=== PATIENT | male | born 1930 | race Caucasian/White ===

== ENCOUNTER 2016-09-17 13:07 | Observation (INO) | payer MEDICARE ==
[~2016-09-17] VITALS: Ht 185.4 cm; Wt 91.6 kg
[~2016-09-17 13:07] MED LIST: METO-272 PO; POTA20TA16 PO; SIMV40TA5 PO; TORS20TA3 PO; WARF5TAB7 PO
--- NOTE | 2016-09-17 13:10 | ED.REPORT ---
HPI-Stroke / CVA Sep 17, 2016 ED Provider: Domenico Fish MD Pt is an 85 year old male with a history of A-fib, aortic valve regurgitation, HTN, and hyperlipidemia who presents to the ED complaining of slurred speech onset 09:00 today. He c/o associated facial droop and vision loss. He denies any other symptoms. His reports that his arms and legs may have not been working properly, but she is unable to remember. The pt reports that he may have fallen, but he couldn't remember if he did or not. Nursing Notes Stated Complaint: STROKE Chief Complaint: Stroke Nursing Notes Reviewed: Yes Allergies: Coded Allergies: No Known Allergies (Verified Allergy, Mild, 02/26/09) Scheduled Ascorbic Acid (Vitamin C) 250 Mg Tab.chew 250 MG PO DAILY (Reported) Calcium Carbonate (Calcium Carbonate) 600 Mg Tablet 600 MG PO DAILY (Reported) Metoprolol Succinate ER (Metoprolol Succinate ER) 50 Mg Tab.er.24h 50 MG PO BID (Reported) [place]-3/Dha/Epa/Fish Oil (Fish Oil 1,000 mg Softgel) 1 Each Capsule 1 EACH PO DAILY (Reported) Potassium Chloride (Potassium Chloride) 20 Meq Tab.er.prt 20 MEQ PO DAILYWM ( Reported) TAKE WITH FOOD Simvastatin (Simvastatin) 40 Mg Tablet 40 MG PO HS (Reported) Torsemide (Torsemide) 20 Mg Tablet 20 MG PO QAM (Reported) Warfarin Sodium (Warfarin Sodium) 5 Mg Tablet 5 MG PO FRIDAYS (Reported) WARFARIN 5 MG FRIDAYS AND 2.5 MG ALL OTHER DAYS Warfarin Sodium (Warfarin Sodium) 5 Mg Tablet 2.5 MG PO DAILY EXCEPT MONDAY ( Reported) WARFARIN 5 MG FRIDAYS AND 2.5 MG ALL OTHER DAYS General Time Seen by Provider: 01:09 Chief Complaint Slurred speech Hx Obtained From: Patient, Spouse Arrived By: Walk-in Time last known well Unknown Sudden in Onset?: Yes Symptom Duration: Duration unknown Progression Since Onset: Gradually improving Severity: Current: No pain currently Severity: Maximum: No pain Recent Healthcare: No recent doctor visit, No recent hospitalization Similar Sx Previous: No Risk Factors )( TPA Administration/Criteria Stroke Thrombolytic Therapy : TPA Considered: Yes TPA Administered Intravenously: No, not indicated (patient can't confirm that he did not awaken with the symptoms) NIH Stroke Scale Level of Consciousness: Alert and responsive (0) Ask Month & Age: Both questions right (0) Open/Close Eyes/Hand 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: Performs both tasks (0) Horizontal EO Movements: None (0) Visual [place]: No visual loss (0) Facial Palsy: Partial paral, lower (2) Right Arm Motor Drift (10s): No drift 10 sec (0) Left Arm Motor Drift (10s): No drift 10 sec (0) Right Leg Motor Drift (5s): No drift 5 sec (0) Left Leg Motor Drift (5s): No drift 5 sec (0) Limb Ataxia FNF/Heel-Jiménez: No ataxia (0) Sensation (Arms/Legs/Face): P-prick dull but felt (1) Language Aphasia: No aphasia, normal (0) Dysarthria: Slurring intelligible (1) Extinction/Inattention: No exctinct/inattent (0) NIHSS Score: 4 Time NIHSS Performed: 13:20 Date NIHSS Performed: Sep 17, 2016 Past Medical History Past Medical History DVT right leg - 2004 Pulmonary embolism Kidney stone Reports: Hyperlipidemia, Hypertension, Denies: Diabetes mellitus Past Surgical History Aortic valve regurgitation Ankle Smoking History Former Smoker (1956) Social History Alcohol Use: Denies alcohol use Drug Use: Denies drug use Other Social History: Good social support Ambulatory Status Independent Review of Systems Respiratory: Denies: Non-productive cough, Shortness of breath Neurologic: Reports: Focal weakness, Slurred speech, Vision change Complete sys rev & neg: except as marked. Physical Exam Initial Vital Signs Vital Signs (First) Date Time Temp Pulse Resp B/P Pulse Ox O2 Delivery O2 Flow Rate FiO2 09/17/16 13:39 55 20 152/54 98 Room Air Initial VS: Reviewed Abdomen / GI: Soft, Non-tender Extremities: Vascular intact, Neuro intact Skin: Warm, Dry, No cyanosis Psychiatric: Mood/affect normal, Behavior normal General/Constitutional: Awake, Alert, Cooperative Head / Eyes: Atraumatic, Normocephalic Neck: Atraumatic, Full range of motion Respiratory / Chest: Atraumatic, Breath sounds NL, Breath sounds = bilat Cardiovascular: Heart rate NL, Regular rhythm, Heart sounds NL Neurologic: Oriented X3, No motor deficits, No sensory deficits Speech: Positive: Slurred Right upper extremity is dull to sensation and sharper on the right side. The left leg is dull. The right face is affected with dramatic flattening of the right face. Interpretation & Diagnostics Lab Results Interpretation Result Diagram: 09/17/16 1325 09/17/16 1325 Test 09/17/16 13:25 White Blood Count 6.3th/mm3 (3.8-10.1) Red Blood Count 4.48mil/mm3 (4.40-5.80) Hemoglobin 14.7g/dL (13.8-17.2) Hematocrit 44.1% (41.0-50.0) Mean Corpuscular Volume 98.4fL (81-100) Mean Corpuscular Hemoglobin 32.8pg (27.0-35.0) Mean Corpuscular Hemoglobin Concent 33.3% (32.0-37.0) Red Cell Distribution Width 12.8% (12.3-15.4) Platelet Count 163bil/L (150-400) Neutrophils (%) (Auto) 68.4% (40-74) Lymphocytes (%) (Auto) 20.3% (14-46) Monocytes (%) (Auto) 9.9% (4-12) Eosinophils (%) (Auto) 0.8% (0-5) Basophils (%) (Auto) 0.3% (0-3) Prothrombin Time 23.7sec (8.1-12.5) Prothromb Time International Ratio 2.18ratio Activated Partial Thromboplast Time 35.2sec (22.8-33.0) Sodium Level 139mEq/L (134-144) Potassium Level 4.2mEq/L (3.5-5.2) Chloride Level 101mEq/L (97-108) Carbon Dioxide Level 25mmol/L (18-29) Blood Urea Nitrogen 17mg/dL (8-27) Creatinine 0.86mg/dL (0.76-1.27) Estimat Glomerular Filtration Rate 90mL/min (>59) Glucose Level 101mg/dL (60-99) Calcium Level 9.1mg/dL (8.5-10.1) Total Bilirubin 2.4mg/dL (0.0-1.2) Aspartate Amino Transf (AST/SGOT) 25U/L (0-50) Alanine Aminotransferase (ALT/SGPT) 15U/L (0-44) Alkaline Phosphatase 47U/L (25-160) Troponin T < 0.010ug/L (0.0-0.011) Total Protein 7.2g/dL (6.4-8.4) Albumin 3.8g/dL (3.4-5.0) ECG Interpretation ECG Interpretation: Sinus rhythm with a rate of 51. Prolonged ME interval. Non-specific IVCD. Time: 13:39 Interpreted by: ED physician Re-Eval/Medical Decision Med Decision/Clinical Course CT angiography of the head and neck showed no large vascular lesion. Source of Hx: Old records Re-Evaluation/Progress : Time of Eval: 13:42 Re-Evaluation/Progress Note: Pt rechecked. Informed pt of plan for admission. Pt understands and agrees with plan for admission. All questions were answered. Consultation : Referral / Consult Name: Yessy English MD Consulted With: Hospitalist Call Returned at: 01:53 Senior Facilities Manager: Will see patient, Agrees with eval, Agrees with plan, Accepts admit Counseled Regarding: Diagnosis, Lab results, Need for admission Patient Discharge & Departure Impression: Primary Impression: Cerebrovascular accident CVA mechanism: unspecified Qualified Code: I63.9 - Cerebral infarction, unspecified Disposition: ADMITTED TO HOSPITAL Discharge Condition All VS Reviewed: Yes Condition: Stable Referrals: Tono Hernández MD (PCP) Ifeanyiibjuan Attestation Portions of this note were transcribed by Birgit Leal. IDr. Fish personally performed the history, physical exam and medical decision-making; I reviewed and confirmed the accuracy of the information in the transcribed note. Signed by: Andrew Simms, 09/17/16 and 13:50. copies to: Tono Hernández MD, Kirk H MD Sep 17, 2016 13:10 Birgit Heller Sep 17, 2016 13:26
--- NOTE | 2016-09-17 13:28 | DRSVH ---
PROCEDURE: CT BRAIN (TPA) ([id number]) INDICATIONS: Stroke TECHNIQUE: Noncontrast 4.5 mm thick angled axial sections acquired from the foramen magnum to the vertex, with c oronal reformats. COMPARISON: None. FINDINGS: Image quality: Excellent. CSF spaces: Basal cisterns are patent. No extra-axial fluid collections. The ventricles are symmet may in size and shape. Brain: No intracranial bleeds or masses. There is cerebral volume loss for age, with resultant vent ricular and sulcal prominence. There are extensive periventricular and deep white matter chronic sma ll vessel ischemic changes. There is intracranial internal carotid artery atherosclerosis. Skull and face: Calvarium and visualized facial bones appear intact, without suspicious lesions. Sinuses: Visualized sinuses and mastoids are clear. IMPRESSION: 1. No acute intracranial findings. 2. Extensive findings likely associated with microvascular ischemic changes. These findings were discussed with Dr. Fish at 1:26 PM on 09/17/16. This study fulfills neurological imaging criteria for inclusion or exclusion of acute stroke therapie s based on available published neurological guidelines. Dictated by: Ciara Magallanes M.D. on 09/17/2016 at 13:23 Approved by: Ciara Magallanes M.D. on 09/17/2016 at 13:26
[2016-09-17 13:39] VITALS: BP 152/54; PULSE 55; RESP 20; O2SAT 98
[2016-09-17 13:42] LABS: BASOPHILS % (AUTO) 0.3 % (0-3); EOSINOPHILS % (AUTO) 0.8 % (0-5); MONOCYTES % (AUTO) 9.9 % (4-12); Mean Corpuscular Hemoglobin 32.8 pg (27.0-35.0); Mean Corpuscular Volume 98.4 fL (81-100); NEUTROPHILS % (AUTO) 68.4 % (40-74); Platelet Count 163 bil/L (150-400)
[2016-09-17] MEDS ORDERED: WARF5TAB7 PO (13:58)
--- NOTE | 2016-09-17 13:58 | NUR ---
Evaluation completed. Please go to "Notes" then click on "Assessments and Notes" (bottom left corner of screen). Then select appropriate discipline tab on top of screen.
[2016-09-17 14:00] LABS: INR 2.18 ratio
[2016-09-17] MEDS ORDERED: ASCO250T7 PO (14:00)
[2016-09-17] MEDS ORDERED: OMEG-38 PO (14:00)
[2016-09-17] MEDS ORDERED: CALC600T20 PO (14:00)
[2016-09-17 14:10] LABS: TROPONIN T < 0.010 ug/L (0.0-0.011)
[2016-09-17 14:22] VITALS: BP 139/47; PULSE 62; RESP 20; O2SAT 97
[2016-09-17 15:28] VITALS: BP 157/60; PULSE 59; RESP 20; O2SAT 98
--- NOTE | 2016-09-17 15:33 | DRSVH ---
PROCEDURE: CT ANGIO HEAD AND NECK (P) INDICATIONS: cva TECHNIQUE: Pre-contrast 4.5 mm thick sections acquired from the foramen magnum to the vertex. After the adminis tration of intravenous contrast, 1 mm thick sections acquired from the aortic arch through the [place] of [place]. Post-contrast 4.5 mm thick sections then re-acquired from the foramen magnum to the vert ex. 3-dimensional jlnvlej-fwtymzpdc-iocgxzomar (MIP) and/or volume rendering reformats were acquired of the central intracranial vasculature and neck separately. For radiation dose reduction, the foll owing was used: automated exposure control, adjustment of mA and/or kV according to patient size. COMPARISON: None. FINDINGS: Image quality: Excellent. BRAIN: CSF spaces: Ventricles are normal in size and shape. Basal cisterns are patent. No extra-axial flu id collections. Brain: No midline shift. No intracranial bleeds or masses. There are extensive deep and periventri cular white matter changes likely associated with microvascular ischemic change. There is an old infa rct within the right external capsule of the basal ganglia. Cage-white matter interface appears intac t. Skull and face: Calvarium and facial bones appear intact, without suspicious lesions. Orbits appear normal. Sinuses: Sinuses and mastoids are clear. HEAD CT ANGIOGRAPHY: Anterior circulation: Intracranial internal carotid arteries are normal in overall size and flow. A moderate grade stenosis is present within the left and a high-grade stenosis is present within the ri ght cavernous portions of the internal carotid artery secondary to atheromatous calcification. The f low within the paired anterior cerebral arteries is normal and symmetric. The flow within the middle cerebral arteries is normal and symmetric. The anterior communicating artery is seen. No aneurysms are seen. Posterior circulation: Visualized portions of the vertebral arteries demonstrate normal caliber, and join to form a normal appearing basilar artery. Flow within the posterior cerebral arteries is norm al and symmetric. No aneurysms are seen. NECK CT ANGIOGRAPHY: Carotid system: The great vessels demonstrate a conventional anatomy as they arise from the aortic a rch. The origins of the common carotid arteries appear patent. The common carotid arteries demonstr ate normal caliber and courses. The bifurcation regions are both widely patent. A moderate grade st enosis is present within the proximal right internal carotid artery secondary to atheromatous calcifi cation. The internal carotid arteries demonstrate normal calibers and courses. Posterior circulation: Is a questionable stenosis at the origin of the left vertebral artery. The ambika gin of right vertebral artery is patent. The more superior extracranial portions of both vertebral a rteries also demonstrate normal courses and calibers. They join to form a normal appearing basilar a rtery. Soft tissues: Visualized neck soft tissues demonstrate no suspicious abnormalities. Bones: No suspicious bony lesions. Visualized cervical spine appears normally aligned. IMPRESSION: 1. No acute intracranial findings. 2. Extensive findings likely associated with chronic microvascular ischemic changes. 3. High-grade stenosis of the right and a moderate grade stenosis of the left cavernous portions of t he internal carotid artery secondary to atheromatous calcification. 4. Moderate grade stenosis of the proximal cervical portion of the right internal carotid artery seco ndary to atheromatous calcifications. 5. No occlusion or aneurysmal dilatation. 6. Questionable stenosis at the origin of the left vertebral artery. Dictated by: Ciara Magallanes M.D. on 09/17/2016 at 15:22 Approved by: Ciara Magallanes M.D. on 09/17/2016 at 15:31
[2016-09-17 15:46] LABS: APPEARANCE,URINE CLEAR (CLEAR,HAZY); COLOR,URINE YELLOW (YELLOW); OCCULT BLOOD,URINE NEGATIVE (NEGATIVE); UROBILINOGEN,URINE NORMAL (NORMAL)
[2016-09-17] MEDS ORDERED: Ondansetron 2 mg/mL 2 mL Inj IVPUSH PRN ×2 (16:00→16:05)
[2016-09-17] MEDS ORDERED: Alum-Mag Hydrox-Simeth 30 mL Suspension PO PRN ×2 (16:00→16:05)
[2016-09-17] MEDS ORDERED: Polyethylene Glycol (PEG) 17 Gm Powder PO PRN (16:05)
--- NOTE | 2016-09-17 16:26 | PCM.HPMED ---
Subjective Date of Service Sep 17, 2016 Primary Provider: Admitting Physician: Yessy English MD Primary Care Physician: Tono Hernández MD Attending Physician: Yessy English MD Admit Status: From the Emergency Department Chief Complaint: Slurred speech History of Present Illness: Yesterday he was his usual self. Today around 9 AM he awoke without paper and was reading it. He thought he was doing fine until he tried to talk to his and then noted that his speech was slurred. During his stay in the emergency department he has noted that this is much improved. He does also have a right facial droop which she thinks is improving as well. Denies any visual changes. No new weakness or numbness of any extremities. He says he does have some chronic foot drop. He did have atrial fibrillation last fall but has not noted palpitations and no chest discomfort or shortness of breath. Review of Systems: Hard of hearing and currently not using his hearing aids as the batteries are . Otherwise review of systems is negative except as above Allergies Coded Allergies: No Known Allergies (Verified Allergy, Mild, 02/26/09) Home Medications Potassium chloride 20 mEq daily Warfarin 5 mg on Fridays, 2.5 mg on other days Metoprolol, apparently XL, 50 mg twice a day Torsemide 20 mg daily Simvastatin 40 mg each evening PMH Atrial fibrillation documented last fall, currently in sinus rhythm DVT and pulmonary embolus in 2004, on chronic anticoagulation with warfarin Kidney stones in the Hyper lipidemia Left ankle fracture in 2008 which was pinned and he says he later had an infection area Surgical History Left ankle fracture in 2008 which was pinned Family History Father had diabetes and patient says he from "atherosclerosis" He is not sure what his mother from Social History Hx Alcohol Use: Yes Alcoholic Drinks Per Day: 3-4 drinks every day Hx Substance Use: No Smoking Status: Former Smoker (quit in 1956) Additional Information He has been for 52 years and his has dementia. Has a son living in [place] but he left for [facility] this morning. He has been trying to reach his fuqyegjy-ar-hld to come care for his but she has not yet returned his call. He also has 2 stepdaughters, one living in [place] who is a returned case inspector and the other living in [place]. Exam Vital Signs Vital Sign - Last Date Time Temp Pulse Resp B/P Pulse Ox O2 Delivery O2 Flow Rate FiO2 09/17/16 15:28 59 20 157/60 98 Room Air 09/17/16 14:22 36.7 Exam General: Alert and oriented, no acute distress HEENT: Right facial droop with decreased light touch sensation of the right lower face Neuro: Cranial nerves otherwise appear intact Handgrips are strong and equal, no pronator drift Right dorsiflexion is weaker than the left but plantar flexion strong bilaterally and able to raise each leg off the bed against resistance Neck: No JVD, carotids 2+ Heart: Regular with occasional premature beat Lungs: Clear Abdomen: Soft, non-tender, bowel tones present, no apparent masses or hepatosplenomegaly Extremities: No pedal edema, right pedal pulse 2+ not able to easily locate the left one, trace pedal edema, chronic stasis changes of the skin Lab and Diagnostics Result Diagram: 09/17/16 1325 09/17/16 1325 X-Rays, CTs and MRIs PROCEDURE: CT BRAIN (TPA) ([id number]) INDICATIONS: Stroke TECHNIQUE: Noncontrast 4.5 mm thick angled axial sections acquired from the foramen magnum to the vertex, with coronal reformats. COMPARISON: None. FINDINGS: Image quality: Excellent. CSF spaces: Basal cisterns are patent. No extra-axial fluid collections. The ventricles are symmetric in size and shape. Brain: No intracranial bleeds or masses. There is cerebral volume loss for age , with resultant ventricular and sulcal prominence. There are extensive periventricular and deep white matter chronic small vessel ischemic changes. There is intracranial internal carotid artery atherosclerosis. Skull and face: Calvarium and visualized facial bones appear intact, without suspicious lesions. Sinuses: Visualized sinuses and mastoids are clear. IMPRESSION: 1. No acute intracranial findings. 2. Extensive findings likely associated with microvascular ischemic changes. These findings were discussed with Dr. Fish at 1:26 PM on 09/17/16. This study fulfills neurological imaging criteria for inclusion or exclusion of acute stroke therapies based on available published neurological guidelines. Dictated by: Ciara Magallanes M.D. on 09/17/2016 at 13:23 Approved by: Ciara Magallanes M.D. on 09/17/2016 at 13:2 PROCEDURE: CT ANGIO HEAD AND NECK (P) INDICATIONS: cva TECHNIQUE: Pre-contrast 4.5 mm thick sections acquired from the foramen magnum to the vertex. After the administration of intravenous contrast, 1 mm thick sections acquired from the aortic arch through the [place] of [place]. Post-contrast 4.5 mm thick sections then re-acquired from the foramen magnum to the vertex. 3- dimensional kabdhht-vgtolgeew-vwinsbxgey (MIP) and/or volume rendering reformats were acquired of the central intracranial vasculature and neck separately. For radiation dose reduction, the following was used: automated exposure control, adjustment of mA and/or kV according to patient size. COMPARISON: None. FINDINGS: Image quality: Excellent. BRAIN: CSF spaces: Ventricles are normal in size and shape. Basal cisterns are patent. No extra-axial fluid collections. Brain: No midline shift. No intracranial bleeds or masses. There are extensive deep and periventricular white matter changes likely associated with microvascular ischemic change. 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 Cage-white matter interface appears intact. Skull and face: Calvarium and facial bones appear intact, without suspicious lesions. Orbits appear normal. Sinuses: Sinuses and mastoids are clear. HEAD CT ANGIOGRAPHY: Anterior circulation: Intracranial internal carotid arteries are normal in overall size and flow. A moderate grade stenosis is present within the left and a high-grade stenosis is present within the right cavernous portions of the internal carotid artery secondary to atheromatous calcification. The flow within the paired anterior cerebral arteries is normal and symmetric. The flow within the middle cerebral arteries is normal and symmetric. The anterior communicating artery is seen. No aneurysms are seen. Posterior circulation: Visualized portions of the vertebral arteries demonstrate normal caliber, and join to form a normal appearing basilar artery. Flow within the posterior cerebral arteries is normal and symmetric. No aneurysms are seen. NECK CT ANGIOGRAPHY: Carotid system: The great vessels demonstrate a conventional anatomy as they arise from the aortic arch. The origins of the common carotid arteries appear patent. The common carotid arteries demonstrate normal caliber and courses. The bifurcation regions are both widely patent. A moderate grade stenosis is present within the proximal right internal carotid artery secondary to atheromatous calcification. The internal carotid arteries demonstrate normal calibers and courses. Posterior circulation: Is a questionable stenosis at the origin of the left vertebral artery. The origin of right vertebral artery is patent. The more superior extracranial portions of both vertebral arteries also demonstrate normal courses and calibers. They join to form a normal appearing basilar artery. Soft tissues: Visualized neck soft tissues demonstrate no suspicious abnormalities. Bones: No suspicious bony lesions. Visualized cervical spine appears normally aligned. IMPRESSION: 1. No acute intracranial findings. 2. Extensive findings likely associated with chronic microvascular ischemic changes. 3. 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 4. Moderate grade stenosis of the proximal cervical portion of the right internal carotid artery secondary to atheromatous calcifications. 5. No occlusion or aneurysmal dilatation. 6. Questionable stenosis at the origin of the left vertebral artery. Dictated by: Ciara Magallanes M.D. on 09/17/2016 at 15:22 Approved by: Ciara Magallanes M.D. on 09/17/2016 at 15:31 Assessment & Plan 85-year-old man on chronic warfarin therapy for history of DVT/PE and more recently atrial fibrillation, although currently in sinus rhythm. He developed slurred speech and right facial droop this morning which were showing improvement by the time of admission. Slurred speech and right facial droop, acute, present at the time of admission, presumed due to stroke/TIA - Is therapeutic on warfarin, will continue - Continue statin - CT angiogram of the neck does show some carotid disease but worse on the right which does not match his symptoms - Obtain speech therapy and physical therapy evaluations - No neurologist available on the weekend for consult History of atrial fibrillation last fall, currently in sinus rhythm - Is therapeutic on warfarin, will continue - Continue same dose of metoprolol 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, will continue Hyperlipidemia - Continue statin Elevated total bilirubin, unclear if this is acute or chronic - Other liver function tests, including alkaline phosphatase, are normal - Repeat labs tomorrow Yessy English MD Sep 17, 2016 16:26
[2016-09-17 16:39] VITALS: BP 171/62; PULSE 59; RESP 18; O2SAT 98
--- NOTE | 2016-09-17 16:41 | PCM.CONPHA ---
Subjective Date of Service: Sep 17, 2016 Warfarin dosing Reason for Pharmacy Consult: Anticoagulation Management Assessment/Plan Assessment/Plan Date INR 2.18 INR change Warf Dose 2.5MG A/ Patient is on warfarin for a hx of DVT/PE. Patient takes 2.5mg daily except 5mg on monday. INR is 2.18, which is therapeutic. P/ Continue with home dosing today and pharmacy will monitor daily. Thank you for consulting pharmacy in the care of this patient. Power Velasquez Sep 17, 2016 16:41
[2016-09-17 16:45] VITALS: PULSE 58
--- NOTE | 2016-09-17 18:41 | NUR ---
ADMIT NOTE Admitted an 85/M into room 3014 following report from FRANCOIS Low RN. Pt A&Ox4, denies any pain/discomfort. Able to transfer from stretcher to bed with SBA. IV flushing easily. Neuros + for slight R facial droop. Pt has equal rating specialist. Pt on RA, denies any SOB. TELE in place. Pt introduced to staff, bed/call light controls. Pt main concern is at bedside for whom he is the sole caregiver for as she has dementia. Multiple calls have been made in ED and on unit to dtr in law, Jaki ([phone]) as his son, Jim is out of town on a business trip. Bed in lowest, locked position and call light in reach.
[2016-09-17 20:41] VITALS: BP 158/73; PULSE 64; RESP 18; O2SAT 99
[2016-09-17] MEDS: MeTOProlol XL 50 mg ER24 Tablet PO SCH (20:57)
--- NOTE | 2016-09-17 20:58 | NUR ---
HENNA explained and signed, Copy of AGUILLON given to pt.
[2016-09-18 00:42] VITALS: BP 154/69; PULSE 50; RESP 18; O2SAT 95
[2016-09-18 04:40] VITALS: BP 150/62; PULSE 56; RESP 19; O2SAT 94
[2016-09-18 05:46] VITALS: PULSE 56
--- NOTE | 2016-09-18 06:29 | NUR ---
Noc/NVS pt is alert and oriented x4. Noted right sided facial droop. Pt having difficulty pronouncing words. Observed no tongue deviation. Has been pleasant and cooperative with care. Noted bilateral equal equipment engineer. Lower extremities appropriate for age. Denies chest pain, sob, n/v or abd discomfort. HS meds administered as scheduled. VSS and has been afebrile overnight.
[2016-09-18 07:11] LABS: INR 1.95 ratio
[2016-09-18 07:15] LABS: Bilirubin, Direct 0.4 mg/dL (0.0-0.3)
[2016-09-18] MEDS ORDERED: Potassium Chloride 20 mEq SR Tablet PO SCH (08:00)
[2016-09-18] MEDS ORDERED: Ascorbic Acid 500 mg Tablet PO SCH (08:30)
[2016-09-18] MEDS ORDERED: Calcium Carbonate (Oyster Shell) 500 mg Tablet PO SCH (08:30)
[2016-09-18] MEDS ORDERED: Omega-3-Acid Ethyl Esters 1 Gm Capsule PO SCH (08:30)
[2016-09-18 08:32] VITALS: PULSE 69
[2016-09-18] MEDS: MeTOProlol XL 50 mg ER24 Tablet PO SCH (08:40)
--- NOTE | 2016-09-18 10:10 | NUR ---
Evaluation completed. Please go to "Notes" then click on "Assessments and Notes" (bottom left corner of screen). Then select appropriate discipline tab on top of screen.
--- NOTE | 2016-09-18 10:18 | PCM.PHAPRO ---
Progress Date of Service: Sep 18, 2016 Slurred speech WARFARIN MANAGEMENT A\ 85yo M Admitted with possible CVA and history of PE/DVT Goal INR 2-3 Current INR=1.95 Home Warfarin 5mg Fridays, 2.5mg all other days INR has dripped subtherapeutic today will increase today' s dose. P\ Warfarin 5mg PO x1 tonight and continue to monitor daily INRs [place] [facility] Sep 18, 2016 10:18
[2016-09-18 10:43] VITALS: BP 129/57; PULSE 51; RESP 18; O2SAT 96
--- NOTE | 2016-09-18 13:01 | PCM.DIMED ---
Discharge Instructions Date of Service Sep 18, 2016 Dates of Hospitalization Sep 17, 2016 at 14:19 Diet Discharge Diet: Heart Healthy Activity Discharge Activity: Other (as per physical therapists recommendations) Patient Instructions Follow-up with PCP in: Other (this week) Yessy English MD Sep 18, 2016 13:01
--- NOTE | 2016-09-18 13:11 | PCM.DC.MED ---
Discharge Summary Date of Service Sep 18, 2016 Dates of Hospitalization Date of Hospital Admission Sep 17, 2016 at 14:19 Date of Discharge: Sep 18, 2016 Providers: Admitting Physician: Yessy English MD Primary Care Physician: Tono Hernández MD Attending Physician: Yessy English MD Diagnosis at Time of Discharge Diagnosis at Time of Discharge Stroke Procedures XRay, CTs & MRIs PROCEDURE: CT BRAIN (TPA) ([id number]) INDICATIONS: Stroke TECHNIQUE: Noncontrast 4.5 mm thick angled axial sections acquired from the foramen magnum to the vertex, with coronal reformats. COMPARISON: None. FINDINGS: Image quality: Excellent. CSF spaces: Basal cisterns are patent. No extra-axial fluid collections. The ventricles are symmetric in size and shape. Brain: No intracranial bleeds or masses. There is cerebral volume loss for age , with resultant ventricular and sulcal prominence. There are extensive periventricular and deep white matter chronic small vessel ischemic changes. There is intracranial internal carotid artery atherosclerosis. Skull and face: Calvarium and visualized facial bones appear intact, without suspicious lesions. Sinuses: Visualized sinuses and mastoids are clear. IMPRESSION: 1. No acute intracranial findings. 2. Extensive findings likely associated with microvascular ischemic changes. These findings were discussed with Dr. Fish at 1:26 PM on 09/17/16. This study fulfills neurological imaging criteria for inclusion or exclusion of acute stroke therapies based on available published neurological guidelines. Dictated by: Ciara Magallanes M.D. on 09/17/2016 at 13:23 Approved by: Ciara Magallanes M.D. on 09/17/2016 at 13:2 PROCEDURE: CT ANGIO HEAD AND NECK (P) INDICATIONS: cva TECHNIQUE: Pre-contrast 4.5 mm thick sections acquired from the foramen magnum to the vertex. After the administration of intravenous contrast, 1 mm thick sections acquired from the aortic arch through the [place]. Post-contrast 4.5 mm thick sections then re-acquired from the foramen magnum to the vertex. 3- dimensional gjvgflz-tcwtyhdrf-ifndoliafx (MIP) and/or volume rendering reformats were acquired of the central intracranial vasculature and neck separately. For radiation dose reduction, the following was used: automated exposure control, adjustment of mA and/or kV according to patient size. COMPARISON: None. FINDINGS: Image quality: Excellent. BRAIN: CSF spaces: Ventricles are normal in size and shape. Basal cisterns are patent. No extra-axial fluid collections. Brain: No midline shift. No intracranial bleeds or masses. There are extensive deep and periventricular white matter changes likely associated with microvascular ischemic change. 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 Cage-white matter interface appears intact. Skull and face: Calvarium and facial bones appear intact, without suspicious lesions. Orbits appear normal. Sinuses: Sinuses and mastoids are clear. HEAD CT ANGIOGRAPHY: Anterior circulation: Intracranial internal carotid arteries are normal in overall size and flow. A moderate grade stenosis is present within the left and a high-grade stenosis is present within the right cavernous portions of the internal carotid artery secondary to atheromatous calcification. The flow within the paired anterior cerebral arteries is normal and symmetric. The flow within the middle cerebral arteries is normal and symmetric. The anterior communicating artery is seen. No aneurysms are seen. Posterior circulation: Visualized portions of the vertebral arteries demonstrate normal caliber, and join to form a normal appearing basilar artery. Flow within the posterior cerebral arteries is normal and symmetric. No aneurysms are seen. NECK CT ANGIOGRAPHY: Carotid system: The great vessels demonstrate a conventional anatomy as they arise from the aortic arch. The origins of the common carotid arteries appear patent. The common carotid arteries demonstrate normal caliber and courses. The bifurcation regions are both widely patent. A moderate grade stenosis is present within the proximal right internal carotid artery secondary to atheromatous calcification. The internal carotid arteries demonstrate normal calibers and courses. Posterior circulation: Is a questionable stenosis at the origin of the left vertebral artery. The origin of right vertebral artery is patent. The more superior extracranial portions of both vertebral arteries also demonstrate normal courses and calibers. They join to form a normal appearing basilar artery. Soft tissues: Visualized neck soft tissues demonstrate no suspicious abnormalities. Bones: No suspicious bony lesions. Visualized cervical spine appears normally aligned. IMPRESSION: 1. No acute intracranial findings. 2. Extensive findings likely associated with chronic microvascular ischemic changes. 3. 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 4. Moderate grade stenosis of the proximal cervical portion of the right internal carotid artery secondary to atheromatous calcifications. 5. No occlusion or aneurysmal dilatation. 6. Questionable stenosis at the origin of the left vertebral artery. Dictated by: Ciara Magallanes M.D. on 09/17/2016 at 15:22 Approved by: Ciara Magallanes M.D. on 09/17/2016 at 15:31 Brief History Yesterday he was his usual self. Today around 9 AM he awoke without paper and was reading it. He thought he was doing fine until he tried to talk to his and then noted that his speech was slurred. During his stay in the emergency department he has noted that this is much improved. He does also have a right facial droop which she thinks is improving as well. Denies any visual changes. No new weakness or numbness of any extremities. He says he does have some chronic foot drop. He did have atrial fibrillation last fall but has not noted palpitations and no chest discomfort or shortness of breath. Hospital Course 85-year-old man on chronic warfarin therapy for history of DVT/PE and more recently atrial fibrillation, although currently in sinus rhythm. He developed slurred speech and right facial droop the morning of admission (possibly present upon awakening so no thrombolytics) which were showing improvement by the time of admission. Slurred speech and right facial droop, acute, present at the time of admission, presumed due to stroke, improving - Is therapeutic on warfarin, will continue - Continue statin - Brain CT with no acute abnl (did show extensive periventricular and deep white matter chronic small vessel ischemic changes) - CT angiogram of the neck does show some carotid disease but worse on the right which does not match his symptoms - speech therapy and physical therapy evaluations done and they recommend home health PT and ST - No neurologist available on the weekend for consult - should follow up this week with his PCP to see if neurologist consultation or any change in therapy is warranted History of atrial fibrillation last fall, currently in sinus rhythm - Is therapeutic on warfarin, will continue - Continue same dose of metoprolol 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, will continue Hyperlipidemia - Continue statin Elevated total bilirubin (2.4), unclear if this is acute or chronic, consider Gilbert syndrome - Other liver function tests, including alkaline phosphatase, are normal - Repeat labs this am show total bili 2.4 and direct bili 0.4 Exam Vital Signs (Last) Date Time Temp Pulse Resp B/P Pulse Ox O2 Delivery O2 Flow Rate FiO2 09/18/16 10:43 36.7 51 18 129/57 96 Room Air Exam General: Alert and oriented, no acute distress, mild occl slurred speech Slight right facial droop, improved since yesterday Heart: Regular Lungs: Clear Abdomen: Soft, non-tender Extremities: No pedal edema, hand 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 operator strong and equal Test 09/17/16 13:25 09/17/16 15:00 09/18/16 06:15 White Blood Count 6.3th/mm3 (3.8-10.1) Red Blood Count 4.48mil/mm3 (4.40-5.80) Hemoglobin 14.7g/dL (13.8-17.2) Hematocrit 44.1% (41.0-50.0) Mean Corpuscular Volume 98.4fL (81-100) Mean Corpuscular Hemoglobin 32.8pg (27.0-35.0) Mean Corpuscular Hemoglobin Concent 33.3% (32.0-37.0) Red Cell Distribution Width 12.8% (12.3-15.4) Platelet Count 163bil/L (150-400) Neutrophils (%) (Auto) 68.4% (40-74) Lymphocytes (%) (Auto) 20.3% (14-46) Monocytes (%) (Auto) 9.9% (4-12) Eosinophils (%) (Auto) 0.8% (0-5) Basophils (%) (Auto) 0.3% (0-3) Activated Partial Thromboplast Time 35.2sec (22.8-33.0) Troponin T < 0.010ug/L (0.0-0.011) Urine Color Yellow (YELLOW) Urine Appearance Clear (CLEAR,HAZY) Urine pH 5.0 (5.0-8.0) Urine Specific [place] 1.015 (1.003-1.035) Urine Protein Negativemg/dL (NEG,TRACE) Urine Glucose (UA) Negativemg/dL (NEGATIVE) Urine Ketones Negativemg/dL (NEGATIVE) Urine Occult Blood Negative (NEGATIVE) Urine Nitrite Negative (NEGATIVE) Urine Bilirubin Negative (NEGATIVE) Urine Urobilinogen Normalmg/dL (NORMAL) Urine Leukocyte Esterase Negative (NEGATIVE) Urine RBC 0-2/hpf (0-2) Urine WBC 0-5/hpf (0-5) Urine Epithelial Cells Occasional/hpf (NONE-MOD) Urine Crystals None seen (NONE SEEN) Urine Bacteria None/hpf (NONE-FEW) Urine Hyaline Casts None/lpf (NONE) Urine Granular Casts None seen (NONE SEEN) Urine Waxy Casts None seen (NONE SEEN) Urine Red Blood Cell Casts None seen (NONE SEEN) Urine White Blood Cell Casts None seen (NONE SEEN) Urine Mucus None seen (None Seen) Urine Trichomonas None seen (NONE SEEN) Urine Yeast None (NONE SEEN) Urinalysis Comment None Urine Culture Reflexed Not indicated Prothrombin Time 21.2sec (8.1-12.5) Prothromb Time International Ratio 1.95ratio Sodium Level 140mEq/L (134-144) Potassium Level 4.5mEq/L (3.5-5.2) Chloride Level 104mEq/L (97-108) Carbon Dioxide Level 25mmol/L (18-29) Blood Urea Nitrogen 17mg/dL (8-27) Creatinine 0.90mg/dL (0.76-1.27) Estimat Glomerular Filtration Rate 85mL/min (>59) Glucose Level 105mg/dL (60-99) Calcium Level 8.8mg/dL (8.5-10.1) Total Bilirubin 2.4mg/dL (0.0-1.2) Direct Bilirubin 0.4mg/dL (0.0-0.3) Aspartate Amino Transf (AST/SGOT) 21U/L (0-50) Alanine Aminotransferase (ALT/SGPT) 13U/L (0-44) Alkaline Phosphatase 41U/L (25-160) Total Protein 5.8g/dL (6.4-8.4) Albumin 3.4g/dL (3.4-5.0) Discharge Medications Discharge Medications Ascorbic Acid (Vitamin C) 250 Mg Tab.chew 250 MG PO DAILY (Reported) Calcium Carbonate (Calcium Carbonate) 600 Mg Tablet 600 MG PO DAILY (Reported) Metoprolol Succinate ER (Metoprolol Succinate ER) 50 Mg Tab.er.24h 50 MG PO BID (Reported) [place]-3/Dha/Epa/Fish Oil (Fish Oil 1,000 mg Softgel) 1 Each Capsule 1 EACH PO DAILY (Reported) Potassium Chloride (Potassium Chloride) 20 Meq Tab.er.prt 20 MEQ PO DAILYWM ( Reported) TAKE WITH FOOD Simvastatin (Simvastatin) 40 Mg Tablet 40 MG PO HS (Reported) Torsemide (Torsemide) 20 Mg Tablet 20 MG PO QAM (Reported) Warfarin Sodium (Warfarin Sodium) 5 Mg Tablet 5 MG PO FRIDAYS (Reported) WARFARIN 5 MG FRIDAYS AND 2.5 MG ALL OTHER DAYS Warfarin Sodium (Warfarin Sodium) 5 Mg Tablet 2.5 MG PO DAILY EXCEPT MONDAY ( Reported) WARFARIN 5 MG FRIDAYS AND 2.5 MG ALL OTHER DAYS Followup Plan Discharge Diet: Heart Healthy Discharge Activity: Other (as per physical therapists recommendations) Follow-up with PCP in: Other (this week) Yessy English MD Sep 18, 2016 13:11
--- NOTE | 2016-09-18 14:16 | NUR ---
Social Work: Initial Assessment / Multidisciplinary Rounds / D/C Data: Pt is an 85 y/o male admitted for CVA. Pt's PCP is Dr Hernández, pt's insurance is [facility] [place] Medicare. EMR reviewed. D/C orders are in, disposition home with . COMMERCIAL DECORATOR acknowledges MD order for HH PT/ST. Pt discussed in rounds, MD states pt ready for d/c today pending CVA work up. COMMERCIAL DECORATOR met with pt at at bedside, role explained. Pt states he and his who has dementia live in [place] in a two story home where he uses a cane at baseline. Pt drives, has no hx of HH or SNF, no LTC or VA benefits. COMMERCIAL DECORATOR explained HH to pt and spouse, pt agreeable to MD recommendation for HH PT/ST. HH choice list given, pt preferred [facility]. COMMERCIAL DECORATOR referred pt to [facility], voice mail left, access given. F2F faxed. No further d/c planning needs anticipated at this time. COMMERCIAL DECORATOR will continue to follow if needs arise. Assessment: Pt who is independent at baseline. Plan: Pt will d/c home via POV today with [facility] for PT/ST. No further d/c planning needs anticipated at this time. COMMERCIAL DECORATOR will continue to follow if needs arise. SHERRY Leung Addendum: 09/18/16 at 1420 by MARK ANGELO SS Amended: Links added.
--- NOTE | 2016-09-18 14:48 | NUR ---
Dischage D/C to home with and HH. D/C packet discussed and provided. NO further questions at this time. 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
== END 2016-09-18 14:40 | disposition home or self-care (01) ==
LOC: SED 13:07 → MPC 14:19 → INTOOBSV 14:19
PROVIDERS: ADMIT Internal Medicine; ATTEND Internal Medicine
DX: I63.9 Cerebral infarction, unspecified (principal); R47.81 Slurred speech; R29.810 Facial weakness; I48.91 Unspecified atrial fibrillation; E78.5 Hyperlipidemia, unspecified; I10 Essential (primary) hypertension; R82.2 Biliuria; I35.8 Other nonrheumatic aortic valve disorders; Z86.718 Personal history of other venous thrombosis and embolism; Z86.711 Personal history of pulmonary embolism; Z87.891 Personal history of nicotine dependence; Z79.01 Long term (current) use of anticoagulants
CPT/HCPCS: 36415; 70450; 70496; 70498; 80053; 81000; 82247; 82274; 82948; 84484; 85025; 85610; 85730; 92610; 93005; 96125; 97162; 99285; G0378; G8978; G8979; G8996; G8997; Q9967